=== PATIENT | female | born 1985 | race Caucasian/White ===

== ENCOUNTER 2017-09-15 17:16 | Emergency (ER) | payer SELFPAY ==
[~2017-09-15] VITALS: Ht 175.3 cm; Wt 92.5 kg
[2017-09-15 17:19] VITALS: Ht 175.3 cm; Wt 92.5 kg
== END 2017-09-15 20:25 | disposition left against medical advice (07) ==
LOC: FTE 17:16
DX: Z53.21 Procedure and treatment not carried out due to patient leaving prior to being seen by health care provider (principal)

== ENCOUNTER 2018-06-06 01:07 | Emergency (ER) | END 2018-06-06 04:19 | disposition home or self-care (01) ==